=== PATIENT | female | born 2005 | race Caucasian/White ===

== ENCOUNTER 2024-07-16 17:17 | Emergency (ER) | payer BC ==
[~2024-07-16] VITALS: Ht 167.6 cm; Wt 56.7 kg
[2024-07-16 17:26] VITALS: BP_SYST 111; PULSE 84; RESP 22; TEMP 98.3; O2SAT 98
[2024-07-16 19:56] LABS: BASOPHILS % (AUTO) 0.6 % (0.0-2.0); EOSINOPHILS # (AUTO) 0.1 K/uL (0.0-0.4); EOSINOPHILS % (AUTO) 1.4 % (0.0-4.0); HEMATOCRIT 42.6 % (36-48); HEMOGLOBIN 14.3 g/dL (12.0-16.0); LYMPHOCYTES # (AUTO) 2.3 K/uL (1.0-5.5); LYMPHOCYTES % (AUTO) 46.5 % (20.5-51.5); MEAN CORPUSCULAR HEMOGLOBIN 30 pg (27-31); MEAN CORPUSCULAR HGB CONC 34 % (32-36); MEAN CORPUSCULAR VOLUME 88 fL (79.0-98.0); MONOCYTES # (AUTO) 0.3 K/uL (0.0-1.0); NEUTROPHILS # (AUTO) 2.3 K/uL (1.8-7.7); NEUTROPHILS % (AUTO) 45.5 % (40.0-70.0); PLATELET COUNT (AUTO) 250 K/uL (130-430); RED BLOOD CELL COUNT(AUTO) 4.83 MIL/uL (4.2-6.2); RED CELL DISTRIBUTION WIDTH 14.6 % (9.0-15.0)
[2024-07-16 20:05] LABS: ALBUMIN 4.4 g/dL (3.4-4.8); CALCIUM 9.1 mg/dL (8.4-11.0); CREATININE 0.9 mg/dL (0.55-1.30); POTASSIUM 3.9 mmol/L (3.5-5.1); TOTAL BILIRUBIN 0.3 mg/dL (0.0-1.0); TOTAL PROTEIN, SERUM 7.9 g/dL (6.4-8.3)
[2024-07-16 20:58] LABS: BARBITURATE, URINE NEGATIVE (NEG <=200); CANNABINOID, URINE POSITIVE (NEG <=50); COCAINE, URINE NEGATIVE (NEG <=150); METHAMPHETAMINES SCREEN,URINE NEGATIVE (NEG <=500); PHENCYCLIDINE SCREEN,URINE NEGATIVE (NEG <=25); URINE AMPHETAMINE NEGATIVE (NEG <=500); URINE METHADONE NEGATIVE (NEG <=200)
[2024-07-16 20:59] LABS: OPIATE, URINE NEGATIVE (NEG <=100); UR TRICYCLIC ANTIDEPRESSANTS POSITIVE (NEG <=300); URINE OXYCODONE SCREEN NEGATIVE (NEG <=100)
[2024-07-16 21:00] LABS: BENZODIAZEPINE, URINE POSITIVE (NEG <=150)
[2024-07-16] MEDS: TOPIRAMATE 25 MG TABLET(TOPAMAX) PO ONE (21:43)
[2024-07-16 21:57] VITALS: BP_SYST 110; PULSE 91; RESP 17; TEMP 97.4; O2SAT 96
== END 2024-07-16 21:57 ==
LOC: SED 17:17
DX: R56.9 Unspecified convulsions (principal); Z91.148 Patient's other noncompliance with medication regimen for other reason
CPT/HCPCS: 36415; 70450-TC; 80053; 80307; 81025; 83605; 85025; 99284; 99285